=== PATIENT | female | born 1970 | race Caucasian/White ===

== ENCOUNTER 2021-08-17 14:16 | Emergency (ER) | payer SELFPAY ==
[~2021-08-17] VITALS: Ht 160 cm; Wt 75.5 kg
[2021-08-17 14:29] VITALS: BP 152/95
== END 2021-08-17 17:56 | disposition left against medical advice (07) ==
LOC: EMS 14:22
DX: Z53.21 Procedure and treatment not carried out due to patient leaving prior to being seen by health care provider (principal)